=== PATIENT | female | born 1945 | race African-American/Black ===

== ENCOUNTER 2017-08-14 08:47 | Outpatient (CLI) | payer MEDICARE ==
--- NOTE | 2017-08-14 09:15 | RAD ---
CHEST TWO VIEWS: Date: 08-14-17 Comparison: None. History: Shortness of breath. FINDINGS: The lungs are hyperinflated with increased linear interstitial density noted within both lungs, sugge sting COPD. No pneumothorax, pleural fluid, focal consolidation or alveolar edema. There is atheroscl erotic calcification in the aortic arch. IMPRESSION: Pulmonary hyperinflation with increased linear interstitial density as detailed above. POS: [facility]
== END 2017-08-14 08:48 | disposition home or self-care (01) ==
LOC: RAD 08:47
PROVIDERS: ATTEND Internal Medicine Critical Care Medicine
DX: R06.00 Dyspnea, unspecified (principal); J98.4 Other disorders of lung
CPT/HCPCS: 71020

== ENCOUNTER 2018-10-15 12:30 | Outpatient (CLI) | payer MEDICARE | END 2018-10-15 12:31 | disposition home or self-care (01) | LOC: EDSTATUS 13:00 | PROVIDERS: ATTEND Family Medicine | DX: Z74.09 Other reduced mobility (principal); J44.9 Chronic obstructive pulmonary disease, unspecified ==

== ENCOUNTER 2019-02-15 18:23 | Inpatient (IN) | payer MEDICARE ==
[2019-02-15 19:08] LABS: #Eosinphils 0.1 thou/uL (0.0-0.7); #Lymphocytes 1.4 thou/uL (1.20-3.40); #Monocytes 0.7 thou/uL (0.11-0.59); #Neutrophils 4.6 thou/uL (1.40-6.50); %Basophils 0.7 % (0.0-1.0); %Eosinophils 1.4 % (0.0-10.0); %Lymphocytes 20.9 % (21.0-51.0); %Monocytes 9.8 % (0.0-10.0); %Neutrophils 67.3 % (42.0-75.0); Hemoglobin 15.9 g/dL (12.0-16.0); Mean Corpuscular HGB CONC 32.6 g/dL (32.0-36.0); Mean Corpuscular Hemoglobin 30.8 pg (27.0-31.0); Mean Corpuscular Volume 94.5 fL (78.0-98.0); Mean Platelet Volume 9.1 fL (7.4-10.4); Platelet Count 236 thou/uL (130-400); RBC Distribution Width 12.1 % (11.5-14.5); Red Blood Cell (RBC) Count 5.17 mill/uL (4.20-5.40); White Blood Cell (WBC) Count 6.9 thou/uL (4.8-10.8)
--- NOTE | 2019-02-15 19:29 | RAD ---
CHEST ONE VIEW 02/15/19 HISTORY: Difficulty breathing. COMPARISON: Radiographs 2017. FINDINGS: Lungs are hyperinflated. No pneumothorax. No effusion. Similar appearance to the right hilar fullness likely pulmonary vasculature in nature. No acute osseous abnormality. IMPRESSION: Mild lung hyperinflation suggesting obstructive pulmonary disease. POS: HOME
[2019-02-15 19:32] LABS: ALT (SGPT) 16 U/L (8-55); AST (SGOT) 26 U/L (5-34); Albumin 4.2 g/dL (3.4-4.8); Alkaline Phosphatase 71 U/L (40-150); Anion Gap 16 mmol/L (10-20); BUN (Urea Nitrogen) 14 mg/dL (9.8-20.1); Bilirubin, Total 0.4 mg/dL (0.2-1.2); Calc. Creatinine Clearance 0 mL/min (70-130); Calcium 9.9 mg/dL (7.8-10.44); Carbon Dioxide 27 mmol/L (23-31); Chloride 101 mmol/L (98-107); Estimated GFR-MDRD Greater than 90; Globulin 3.3 g/dL (2.4-3.5); Glucose 126 mg/dL (83-110); Lipase 14 U/L (8-78); Potassium 3.8 mmol/L (3.5-5.1); Protein, Total 7.5 g/dL (6.0-8.3); Sodium 140 mmol/L (136-145)
[2019-02-15 19:36] LABS: Base Excess-Venous 3.5 mmol/L (-2.0 to 3.0); Bicarbonate (HCO3v) 28.5 mmol/L (22.0-28.0); CO2 Tension (PvCO2) 43.1 mmHg (40.0-50.0); Calcium, Ionized 1.09 mmol/L (See Comments:); Chloride 103 mmol/L (98-107); Hemoglobin - Calc 17.2 g/dL (12.0-16.0); O2 Tension (PvO2) 176.7 mmHg (35.0-45.0); Potassium 3.5 mmol/L (3.5-5.1); Sodium 141 mmol/L (138-145); T. Carbon Dioxide 29.8 mmol/L (22.0-28.0); pH (Venous) 7.427 (7.320-7.430); vO2 Saturation-calc 99.6 % (60.0-85.0)
[2019-02-15] MEDS ORDERED: hydrALAZINE 20 MG/ML VIAL ONE (19:37)
[2019-02-15] MEDS ORDERED: Albuterol Sulfate 2.5 mg/3 ml Neb ONE (20:50)
[2019-02-15] MEDS ORDERED: Albuterol Sulfate 2.5 mg/0.5 ml Neb ONE (20:50)
[2019-02-15] MEDS ORDERED: niCARdipine HCl 25 MG in Sodium Chloride 0.9% 250 ML 240 ML IVPB SCH (21:15)
[2019-02-15] MEDS ORDERED: Bacteriostatic Water 30 ML VIAL FS PRN (22:26)
[2019-02-15] MEDS ORDERED: Acetaminophen 325 MG TAB PO PRN (22:27)
[2019-02-15] MEDS ORDERED: Ondansetron ODT 4 MG TAB SL PRN (22:27)
[2019-02-15] MEDS ORDERED: Ondansetron PF 4 MG/2 ML Vial IVP PRN (22:27)
[2019-02-15] MEDS ORDERED: methylPREDNISolone Sod Succ/PF 125 MG/2 ML VIAL IVP SCH (22:30)
[2019-02-15] MEDS ORDERED: Sodium Chloride 0.9% 1,000 ML IV SCH (22:30)
[2019-02-15 22:38] VITALS: BMI 16.5
[2019-02-16] MEDS: Sodium Chloride 0.9% 1,000 ML IV SCH ×2 (00:10→19:27)
[2019-02-16] MEDS: Ipratropium Bromide 2.5 ml Neb NEB SCH ×4 (00:19→11:26)
--- NOTE | 2019-02-16 00:53 | HP ---
HISTORY OF PRESENT ILLNESS: This is a 73-year-old black female with a history of COPD, oxygen dependent, who presents with a 3-day history of an exacerbation. The patient states over the past several days, she simply has had increasing shortness of breath with increasing cough, nausea, and weakness. She finally presents to the ER and was admitted because she was wheezing significantly and found to have a markedly elevated blood pressure. Lab workup also revealed an elevated BNP. The patient reports no history of heart disease or hypertension. She is followed by Dr. Godwin and previously by Dr. Duvall. I believe she has an appointment to see Dr. Martínez in the near future. PAST MEDICAL HISTORY: COPD, oxygen dependent. PAST SURGICAL HISTORY: Includes BTL and spontaneous vaginal delivery x5. MEDICATIONS: Include aspirin 81 daily, Ensure p.r.n., calcium daily, Advair 500/50 b.i.d., Ventolin HFA 2 puffs q.6h. p.r.n. and Spiriva daily. FAMILY HISTORY: Father with some type of cancer. No other significant past history according to the patient. SOCIAL HISTORY: She is a long-time smoker. She quit in July 2017. She has been dependent on oxygen. She lives with her son who is mentally delayed. He is 30 years old with a functioning ability of a 10-year-old. She is . She does have 5 children and she previously worked as a nurse's aide. ALLERGIES: NONE. REVIEW OF SYSTEMS: As above. PHYSICAL EXAMINATION: VITAL SIGNS: Blood pressure 139/66, pulse 110, respirations 24, and pulse oximetry 100%. GENERAL: The patient states she is feeling much better. HEENT: Clear. NECK: Supple. HEART: Slight tachycardia. LUNGS: Relatively clear. No wheezing at this time. She is status post multiple breathing treatments. EXTREMITIES: With no edema. LABORATORY DATA: White count 6.9, H and H 15 and 48, platelet of 236. Sodium 140, potassium 3.8, chloride 101, creatinine 0.68, BUN 14, blood sugar 126. Liver functions normal. Troponin 1 less than 0.010. BNP 1542. ASSESSMENT: 1. Chronic obstructive pulmonary disease exacerbation. 2. Oxygen dependent. 3. Hypertensive urgency, most likely as a result of 1 and 2. 4. Impaired mobility. PLAN: 1. IV steroids. 2. Neb treatments to include DuoNeb q.4h. 3. Levaquin. 4. Oxygen. 5. A.m. labs. 6. To consult Pulmonary in the a.m. Job ID: [id number]
[2019-02-16 04:51] LABS: #Lymphocytes 0.5 thou/uL (1.20-3.40); #Monocytes 0.1 thou/uL (0.11-0.59); #Neutrophils 4.4 thou/uL (1.40-6.50); %Basophils 0.3 % (0.0-1.0); %Eosinophils 0.2 % (0.0-10.0); %Lymphocytes 9.7 % (21.0-51.0); %Monocytes 1.1 % (0.0-10.0); %Neutrophils 88.8 % (42.0-75.0); Hemoglobin 14.8 g/dL (12.0-16.0); Mean Corpuscular HGB CONC 32.6 g/dL (32.0-36.0); Mean Corpuscular Hemoglobin 30.9 pg (27.0-31.0); Mean Corpuscular Volume 94.8 fL (78.0-98.0); Mean Platelet Volume 9.4 fL (7.4-10.4); Platelet Count 216 thou/uL (130-400); RBC Distribution Width 12.1 % (11.5-14.5); Red Blood Cell (RBC) Count 4.78 mill/uL (4.20-5.40)
[2019-02-16 05:09] LABS: Anion Gap 15 mmol/L (10-20); BUN (Urea Nitrogen) 14 mg/dL (9.8-20.1); Calc. Creatinine Clearance 48 mL/min (70-130); Calcium 8.9 mg/dL (7.8-10.44); Carbon Dioxide 25 mmol/L (23-31); Chloride 100 mmol/L (98-107); Estimated GFR-MDRD Greater than 90; Glucose 168 mg/dL (83-110); Potassium 3.9 mmol/L (3.5-5.1); Sodium 136 mmol/L (136-145)
[2019-02-16] MEDS: methylPREDNISolone Sod Succ 40 MG VIAL IVP SCH ×4 (05:54→23:22)
[2019-02-16] MEDS ORDERED: methylPREDNISolone Sod Succ/PF 125 MG/2 ML VIAL IVP SCH (06:00)
[2019-02-16] MEDS: Enoxaparin Sodium 40 MG/0.4 ML SYRINGE SC SCH (09:41)
[2019-02-16] MEDS: Aspirin 81 mg Enteric Coated Tablet PO SCH (09:41)
[2019-02-16] MEDS: Losartan 25 MG TAB PO SCH (09:41)
[2019-02-16] MEDS: Famotidine/PF 20 mg/2ml Vial SLOW IVP SCH ×2 (09:41→20:41)
[2019-02-16] MEDS: hydrALAZINE 20 MG/ML VIAL SLOW IVP PRN (12:23)
[2019-02-16] MEDS ORDERED: Clopidogrel Bisulfate 75 MG TAB ONE (15:21)
--- NOTE | 2019-02-16 18:04 | PRG ---
DATE OF SERVICE: 02/16/2019 SUBJECTIVE: This morning, the patient is breathing much easier. She is in much less distress. Conversing on her phone. OBJECTIVE: VITAL SIGNS: Temperature 98.1, pulse 100, respirations 20, and blood pressure 150/75. HEART: Regular rate and rhythm. LUNGS: Clear. ABDOMEN: Soft. EXTREMITIES: With no edema. LABORATORY DATA: White count 5.0, H and H 14 and 45, and platelets of 216. Sodium 136, potassium 3.9, creatinine 0.69, BUN 14, and glucose 168. ASSESSMENT: 1. Chronic obstructive pulmonary disease exacerbation, much improved since admission, presently on O2 nasal cannula. 2. O2 dependent chronic obstructive pulmonary disease. 3. Hypertensive urgency, under control. We will continue to slowly drop her blood pressure. She was started on losartan and amlodipine last night. 4. Impaired mobility. PLAN: 1. ICU. 2. DuoNeb q.4. 3. Continue Levaquin. 4. Continue O2. 5. Continue to adjust blood pressure medications. 6. The patient was also seen by Dr. Martínez this morning. 7. Discussed with the patient the importance of following up with her doctor on a regular basis. I think her blood pressure has been out of control and needs to be addressed. Job ID: [id number]
[2019-02-16] MEDS: Amlodipine 5 MG TAB PO SCH (20:40)
--- NOTE | 2019-02-17 01:33 | CON ---
DATE OF CONSULTATION: 02/16/2019 HISTORY OF PRESENT ILLNESS: Mary Doyle is a 73-year-old female, was seen in the office once for chronic obstructive pulmonary disease. She says she has been feeling poorly for several days, trying not to have to end up in the hospital. She presented to the emergency room because of shortness of breath and dramatically elevated blood pressure. She subsequently has improved dramatically. PAST MEDICAL HISTORY: Remarkable for; 1. COPD. 2. History of heavy tobacco use and marijuana use. She has quit both. 3. History of chronic respiratory failure with hypoxemia on oxygen at home. 4. History of 5 vaginal deliveries. 5. History of tubal ligation. MEDICATIONS: Prior to admission, she was on; 1. Advair. 2. Ventolin. 3. Spiriva as well as baby aspirin. FAMILY HISTORY: Family history of cancer. No history of lung disease in early age. She lost her . She was a nurse's aide, is now retired. SOCIAL HISTORY: Non contributory. ALLERGIES: SHE REPORTS NO DRUG ALLERGIES. REVIEW OF SYSTEMS: Ten points review of systems is negative. Specifically, she has no purulent sputum or hemoptysis. She denies pleuritic chest discomfort. She denies retrosternal chest discomfort. She was on a Cardene drip. This was discontinued. PHYSICAL EXAMINATION: VITAL SIGNS: She is afebrile, heart rate fluctuating between 92 to 106 this afternoon, respiratory rates in the teens, oximetry is 96% on 2.5 L, blood pressure 163/63. HEENT: Pupils are equal. Sclerae anicteric. NECK: Supple. No lymphadenopathy. LUNGS: Distant with end-expiratory wheezes. HEART: Regular rhythm. S1 and S2 are distant. ABDOMEN: Soft and nontender. EXTREMITIES: Without clubbing, cyanosis, or edema. NEUROLOGIC: Grossly nonfocal. LABORATORY DATA: White count 5, hemoglobin 14.8, platelets 216,000. Sodium 136 , potassium 3.9, chloride 100, bicarb 25, BUN 14, creatinine 0.69. Chest radiograph showed hyperinflated lungs. No infiltrates. No pulmonary edema. IMPRESSION: 1. Chronic obstructive pulmonary disease exacerbation. 2. Accelerated hypertension. 3. Long history of tobacco. She appears to be clinically improved. It would be reasonable to move her out of the Critical Care Unit. Echocardiogram needs to be done. She had a BNP of 1500. I would be happy to follow the other physicians caring for. This is a 70 minute consult, with greater than 50% of the time spent on unit coordinating care. Job ID: [id number] L[facility]
[2019-02-17] MEDS: methylPREDNISolone Sod Succ 40 MG VIAL IVP SCH ×2 (04:43→11:20)
[2019-02-17 05:25] LABS: #Lymphocytes 0.7 thou/uL (1.20-3.40); #Monocytes 0.5 thou/uL (0.11-0.59); #Neutrophils 13.7 thou/uL (1.40-6.50); %Eosinophils 0.2 % (0.0-10.0); %Lymphocytes 4.8 % (21.0-51.0); %Monocytes 3.5 % (0.0-10.0); %Neutrophils 91.6 % (42.0-75.0); Hemoglobin 15.5 g/dL (12.0-16.0); Mean Corpuscular HGB CONC 33.9 g/dL (32.0-36.0); Mean Corpuscular Hemoglobin 32.4 pg (27.0-31.0); Mean Corpuscular Volume 95.5 fL (78.0-98.0); Mean Platelet Volume 9.7 fL (7.4-10.4); Platelet Count 256 thou/uL (130-400); RBC Distribution Width 12.4 % (11.5-14.5)
[2019-02-17 05:50] LABS: Anion Gap 12 mmol/L (10-20); BUN (Urea Nitrogen) 16 mg/dL (9.8-20.1); Calc. Creatinine Clearance 40 mL/min (70-130); Carbon Dioxide 29 mmol/L (23-31); Chloride 100 mmol/L (98-107); Estimated GFR-MDRD 80; Glucose 123 mg/dL (83-110); Potassium 4.6 mmol/L (3.5-5.1); Sodium 136 mmol/L (136-145)
[2019-02-17] MEDS: Enoxaparin Sodium 40 MG/0.4 ML SYRINGE SC SCH (07:51)
[2019-02-17] MEDS: Furosemide 40 MG TAB PO SCH (07:52)
[2019-02-17] MEDS: Aspirin 81 mg Enteric Coated Tablet PO SCH (07:52)
[2019-02-17] MEDS: Famotidine/PF 20 mg/2ml Vial SLOW IVP SCH ×2 (07:52→19:57)
[2019-02-17] MEDS: Losartan 25 MG TAB PO SCH (07:54)
[2019-02-17] MEDS: guaiFENesin ER 600 MG TAB PO SCH ×2 (08:20→19:56)
--- NOTE | 2019-02-17 08:55 | RAD ---
XR Chest Pa Lat STANDARD History: COPD exacerbation Comparison: Radiograph 10/18/2018 Findings: Lungs are hyperinflated. There is scarring left lung apex. No pneumothorax. Calcified granu dari left lower lobe. No acute osseous abnormality. Impression: Lung hyperinflation suggesting obstructive pulmonary disease. No acute intrathoracic abno rmality. Nodular density left lung apex better seen on today's examination. Nonemergent follow-up CT of the chest is recommended.
[2019-02-17] MEDS: hydrALAZINE 20 MG/ML VIAL SLOW IVP PRN ×2 (11:20→17:59)
--- NOTE | 2019-02-17 12:56 | PRG ---
DATE OF SERVICE: 02/17/2019 SUBJECTIVE: Ms. Doyle feels better. Has no acute complaints. OBJECTIVE: VITAL SIGNS: Temperature is 97.6, pulse 78, blood pressure 131/75, and O2 saturation 96% on 2 L. HEENT: Unremarkable. NECK: No JVD. LUNGS: Clear without wheezing. CARDIAC: S1 and S2, regular. ABDOMEN: Soft. EXTREMITIES: No edema. ASSESSMENT: Chronic obstructive pulmonary disease with exacerbation - now appears close to what her baseline probably is. PLAN: She is probably at the point where discharge should be considered. Her steroids can be switched to oral prednisone. Her antibiotics can be switched to oral Levaquin. Job ID: [id number]
--- NOTE | 2019-02-17 13:51 | PQF ---
CLINICAL DOCUMENTATION IMPROVEMENT CLARIFICATION FORM: ICD-10 Updated PLEASE DO AN ADDENDUM TO THE PROGRESS NOTE WITH ANY DOCUMENTATION UPDATES OR ADDITIONS AND CARRY THROUGH TO DC SUMMARY. THANK YOU. DATE: 02/17/19 ATTN: DR. FONSECA Please exercise your independent, professional judgment in responding to the clarification form. Clinical indicators are provided on the bottom of this form for your review Please check appropriate box(s): [ x ] Acute Respiratory Failure: [ ] with Hypoxia[ ] with Hypercapnia [x ] Acute On Chronic Respiratory Failure: [ ] with Hypoxia [ ] with Hypercapnia [ ] Acute Respiratory Failure due to: (etiology) [ ] Chronic Respiratory Failure only [ ] with Hypoxia [ ] with Hypercapnia [ ] Other diagnosis [ ] Unable to determine In addition, please specify: Present on Admission (POA): [ x] Yes [ ] No [ ] Unable to determine For continuity of documentation, please document condition throughout progress notes and discharge summary. Thank You. CLINICAL INDICATORS - SIGNS / SYMPTOMS / LABS H&P: "OXYGEN DEPENDENT" RR 30 PULSE 110 RISKS: COPD H/O CIGARETTE SMOKING CHF TREATMENT: BIPAP PULMONARY CONSULT NEB TREATMENTS (ER-PRESENT) SOLUMEDROL (02/16-02/17) PO PREDNISONE (START 02/18) (This form is maintained as a part of the permanent medical record) 2014 [employer]. All Rights Reserved [employer] Winform Viewer REGAN [email or web address] Office: [phone] [facility]
[2019-02-17] MEDS: Amlodipine 5 MG TAB PO SCH (19:56)
--- NOTE | 2019-02-17 20:43 | PRG ---
DATE OF SERVICE: 02/17/2019 HISTORY OF PRESENT ILLNESS: The patient is transitioned to floor from ICU status, remains comfortable on 2 L nasal cannula, however has not ambulated much and has a son with traumatic brain injury who has been somewhat dependent on her care from mental standpoint, which she is eager to return home, only has home oxygen. Does not have portable oxygen, was approved for power chair, but does not have any oxygen outside at home limiting her to potential homebound status. The patient states that her cough has become less productive on antibiotics and breathing treatments. Temperature of 98.4, pulse of 93, respiratory rate of 20, oxygen saturation 96% on 2 L nasal cannula, and blood pressure 173/75. LABORATORY WORK: White blood cell count 15.0, hemoglobin of 15.5, sodium 136, potassium of 4.6, creatinine of 0.84. BNP ran on the 8th was 1500. Repeat chest x-ray showed no acute signs of any pneumonia potential, left nodular density at apex recommending nonurgent CT of chest for followup. PHYSICAL EXAMINATION: GENERAL: The patient is alert, in no acute distress. HEENT: Head is normocephalic and atraumatic. Extraocular movements are intact. Sclerae are white. Nasal cannula in place. Oral mucosa is moist. NECK: Supple. HEART: Slightly tachycardic. No murmurs. Regular rhythm otherwise. LUNGS: Clear to auscultation bilaterally. No rubs or wheezes. However, the patient is with extremely poor air movement of lungs. Difficult to auscultate anything. ABDOMEN: Soft and nontender. Positive bowel sounds throughout. EXTREMITIES: Lower extremities without cyanosis or edema. NEUROLOGIC: The patient is alert and oriented x3. No focal deficits. Speech is normal. ASSESSMENT AND PLAN: Chronic obstructive pulmonary disease exacerbation, congestive heart failure, acute on chronic respiratory failure, hypertension. Titrating the patient's blood pressure medications to help bring down from extremely high systolics. The patient states she remains asymptomatic other than her breathing with exertional symptoms, continued on antibiotics and steroids and breathing treatments. Pulmonology has been following and decreased to oral considerations today and are okay with the patient discharged home, this likely will occur tomorrow and continue her home health oxygen. We will follow up for titration of blood pressure medications on outpatient basis. Job ID: [id number]
[2019-02-18] MEDS: Losartan 25 MG TAB PO SCH (07:43)
[2019-02-18] MEDS: Furosemide 40 MG TAB PO SCH (07:43)
[2019-02-18] MEDS: guaiFENesin ER 600 MG TAB PO SCH (07:43)
[2019-02-18] MEDS: Aspirin 81 mg Enteric Coated Tablet PO SCH (07:43)
[2019-02-18] MEDS: Enoxaparin Sodium 40 MG/0.4 ML SYRINGE SC SCH (07:44)
[2019-02-18] MEDS: Famotidine/PF 20 mg/2ml Vial SLOW IVP SCH (07:44)
[2019-02-18] MEDS ORDERED: predniSONE 20 MG TAB PO SCH (09:00)
[2019-02-18] MEDS ORDERED: Calcium Carbonate 500 MG ChewTAB PO PRN (10:24)
[2019-02-18] MEDS ORDERED: Mag-Al 1200 mg/1200 mg/30 ML UDCUP PO PRN (10:24)
[2019-02-18] MEDS: hydrALAZINE 20 MG/ML VIAL SLOW IVP PRN (12:26)
[2019-02-18 16:40] VITALS: BP 149/68; TEMP 97.6
--- NOTE | 2019-02-20 01:41 | DIS ---
DATE OF ADMISSION: 02/15/2019 DATE OF DISCHARGE: 02/18/2019 PRESENTING CHIEF COMPLAINT: Shortness of breath. HOSPITAL COURSE: The patient was treated for COPD exacerbation with IV Levaquin, IV steroids, and breathing treatments. The patient is on home oxygen at baseline, was recently qualified for power chair, however, does not have portable oxygen and remains largely homebound. If she does venture out home, she frequently does struggle without oxygen. The patient responded to therapy as well. Work with case management to redirect the patient's expectations. I believe she appears to be hung up on need for compressor rather than oxygen tank as she feels they are heavy, but the patient will need to be on 3 months of oxygen tanks prior to being able to qualify for compressor. DME company contacted to potentially restart the patient's oxygen tank on discharge. 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 The patient was initiated on blood pressure medication and Lasix given her elevated BNP for diastolic heart failure. We will titrate on an outpatient basis upon discharge. DISCHARGE MEDICATIONS: 1. Prednisone 40 mg one tab daily for 5 days. 2. Metoprolol-XL 50 mg daily. 3. Losartan 50 mg daily. 4. Levaquin 750 mg daily. 5. Lasix 40 mg daily. 6. Amlodipine 5 mg daily. Return to home Spiriva 18 mcg two puffs b.i.d. as well as albuterol p.r.n. The patient has additional controller medication at home as well as DuoNeb p.r.n. FOLLOWUP: Follow up with myself, Dr. Jerry Godwin, PCP in the next 7 days. DISCHARGE CONDITION: Stable. DISCHARGE DIAGNOSES: Improved chronic obstructive pulmonary exacerbation, diastolic congestive heart failure. Acute on chronic respiratory failure, improved, on home oxygen. Hypertensive urgency, improved. DISCHARGE DIET: Heart healthy. Job ID: [id number]
== END 2019-02-18 17:27 | disposition home or self-care (01) | DRG 189 ==
LOC: ERS 18:23 → CCU 20:47 → T4-B 22:10
PROVIDERS: ADMIT Family Medicine; ATTEND Family Medicine
DX: J96.21 Acute and chronic respiratory failure with hypoxia (principal); J44.1 Chronic obstructive pulmonary disease with (acute) exacerbation; I16.0 Hypertensive urgency; I50.9 Heart failure, unspecified; Z99.81 Dependence on supplemental oxygen; Z87.891 Personal history of nicotine dependence; Z79.51 Long term (current) use of inhaled steroids; Z79.82 Long term (current) use of aspirin; Z79.899 Other long term (current) drug therapy; Z98.51 Tubal ligation status
CPT/HCPCS: 36415; 71045; 71046; 80048; 80053; 82330; 82803; 83690; 83880; 84484; 85025; 87040; 93005; 94640; 94644; 94660; 94760; 96365; 96366; 96375; J0360; J1650; J1956; J2920; J2930; J7050; J7512; J7611; J7620; S0028

== ENCOUNTER 2019-02-28 11:24 | Emergency (ER) | payer MEDICARE ==
[2019-02-28] MEDS ORDERED: methylPREDNISolone Sod Succ/PF 125 MG/2 ML VIAL ONE (11:53)
[2019-02-28 12:18] LABS: #Eosinphils 0.3 thou/uL (0.0-0.7); #Lymphocytes 1.7 thou/uL (1.20-3.40); #Monocytes 1.2 thou/uL (0.11-0.59); #Neutrophils 7.9 thou/uL (1.40-6.50); %Basophils 0.2 % (0.0-1.0); %Eosinophils 2.4 % (0.0-10.0); %Lymphocytes 15.1 % (21.0-51.0); %Monocytes 10.8 % (0.0-10.0); %Neutrophils 71.5 % (42.0-75.0); Hemoglobin 15.9 g/dL (12.0-16.0); Mean Corpuscular HGB CONC 32.4 g/dL (32.0-36.0); Mean Corpuscular Hemoglobin 30.5 pg (27.0-31.0); Mean Corpuscular Volume 94.1 fL (78.0-98.0); Mean Platelet Volume 8.8 fL (7.4-10.4); Platelet Count 237 thou/uL (130-400); RBC Distribution Width 12.2 % (11.5-14.5); White Blood Cell (WBC) Count 11.1 thou/uL (4.8-10.8)
[2019-02-28 12:42] LABS: ALT (SGPT) 14 U/L (8-55); AST (SGOT) 18 U/L (5-34); Albumin 3.8 g/dL (3.4-4.8); Alkaline Phosphatase 53 U/L (40-150); Anion Gap 11 mmol/L (10-20); BUN (Urea Nitrogen) 11 mg/dL (9.8-20.1); Bilirubin, Total 0.6 mg/dL (0.2-1.2); Calc. Creatinine Clearance 0 mL/min (70-130); Calcium 9.6 mg/dL (7.8-10.44); Carbon Dioxide 36 mmol/L (23-31); Chloride 90 mmol/L (98-107); Estimated GFR-MDRD Greater than 90; Globulin 3.1 g/dL (2.4-3.5); Glucose 129 mg/dL (83-110); Potassium 3.9 mmol/L (3.5-5.1); Protein, Total 6.9 g/dL (6.0-8.3); Sodium 133 mmol/L (136-145)
--- NOTE | 2019-02-28 13:12 | RAD ---
PORTABLE AP CHEST X-RAY: HISTORY: Shortness of breath. COMPARISON: 02/15/2019 FINDINGS: The cardiac silhouette and pulmonary vasculature are within normal limits. The lungs remain hyperinf lated. Calcified granuloma is present at the left lung base. The lungs are otherwise clear. Right hilar fullness is again seen but is stable compared to prior exam, as well as a study in 2017. The n odular density previously mentioned, in the left lung apex, is less well delineated on the current st udy. Vascular calcification is seen in the thoracic aorta. Osseous structures have a normal appeara nce. IMPRESSION: Stable chest with continued hyperinflation of the lungs. POS: [facility]
--- NOTE | 2019-03-01 12:02 | EKG ---
Test Reason : Blood Pressure : / mmHG Vent. Rate : 086 BPM Atrial Rate : 086 BPM P-R Int : 112 ms QRS Dur : 086 ms QT Int : 374 ms P-R-T Axes : 074 -27 -12 degrees QTc Int : 447 ms Normal sinus rhythm Possible Left atrial enlargement Left ventricular hypertrophy Nonspecific T wave abnormality Abnormal ECG Confirmed by LORIN DIMAS ([id number]), marketing editor YONATHAN ROSE ([id number]) on 03/01/2019 12:01:41 PM Referred By: Confirmed By:LORIN DIMAS
== END 2019-02-28 15:24 | disposition home or self-care (01) ==
LOC: ERS 11:24
DX: J44.1 Chronic obstructive pulmonary disease with (acute) exacerbation (principal); F41.9 Anxiety disorder, unspecified; Z87.891 Personal history of nicotine dependence; Z79.899 Other long term (current) drug therapy; Z79.82 Long term (current) use of aspirin; Z79.51 Long term (current) use of inhaled steroids
CPT/HCPCS: 71045; 80053; 84484; 85025; 93005; 94640; 96374; J2930; J7620

== ENCOUNTER 2019-03-05 00:17 | Inpatient (IN) | payer MEDICARE ==
[2019-03-05] MEDS ORDERED: Ketamine 50 MG/ML (10ML VIAL) ONE (00:25)
[2019-03-05 00:42] LABS: Actual Bicarbonate (HCO3a) 33.1 mEq/L (22-28); Analyzer IN Cardio ER; Base Excess (BEa) 4.5 mEq/L (-2.0 to +3.0); Calcium, Ionized 1.21 mmol/L (1.12-1.30); Carboxyhemoglobin (COHb) 0.6 gm% (0.0-3.0); Hemoglobin (Hb) 16.4 g/dL (12.0-16.0); O2 Tension (PaO2) 115.6 mmHg (> 70.0); Potassium - ABG Lab 4.72 mmol/L (3.70-5.30); pH, Arterial 7.32 (7.35-7.45)
[2019-03-05 00:48] LABS: CO2 Tension 65.9 mmHg (35.0-45.0)
[2019-03-05 00:49] LABS: ALV-art Gradient 87.225 (0-20); Puncture Site LRA
[2019-03-05 00:56] LABS: Bilirubin Negative (Negative); Blood, Urine Moderate (Negative); Clarity Slightly Cloudy (Clear); Glucose, Urine (Dipstick) Negative (Negative); Leukocyte Negative (Negative); Nitrite Negative (Negative); Protein, Urine (Dipstick) > or equal to 300 mg/dL (Neg-Trace); Urobilinogen 0.2 mg/dL (0.2-1.0); pH, Urine 7.5 (5.0-9.0)
[2019-03-05 01:00] LABS: #Eosinphils 0.2 thou/uL (0.0-0.7); #Monocytes 1.4 thou/uL (0.11-0.59); #Neutrophils 8.7 thou/uL (1.40-6.50); %Basophils 0.3 % (0.0-1.0); %Eosinophils 1.6 % (0.0-10.0); %Lymphocytes 22.7 % (21.0-51.0); %Monocytes 10.1 % (0.0-10.0); %Neutrophils 65.3 % (42.0-75.0); Hemoglobin 15.5 g/dL (12.0-16.0); Mean Corpuscular HGB CONC 31.5 g/dL (32.0-36.0); Mean Corpuscular Hemoglobin 29.9 pg (27.0-31.0); Mean Corpuscular Volume 94.9 fL (78.0-98.0); Mean Platelet Volume 9.1 fL (7.4-10.4); Platelet Count 250 thou/uL (130-400); Red Blood Cell (RBC) Count 5.18 mill/uL (4.20-5.40); White Blood Cell (WBC) Count 13.3 thou/uL (4.8-10.8)
[2019-03-05 01:08] LABS: Renal Epithelial None Seen HPF (0-3); Squamous Epithelial 0-3 HPF (0-3); Transitional Epithelial NONE SEEN HPF (0-3)
[2019-03-05 01:09] LABS: Bacteria/HPF 2+ HPF (None Seen)
[2019-03-05 01:10] LABS: Crystals/HPF 2+ AMORPH PHOS HPF (Negative); Hyaline Casts/LPF NONE SEEN LPF (0-3 Hyaline)
[2019-03-05 01:14] LABS: Amphetamine Not Detected (NotDetected); Barbiturates Screen Not Detected (NotDetected); Benzodiazepine Screen Not Detected (NotDetected); Cocaine Metabolite Screen Not Detected (NotDetected); Medtox Control Line Valid? VALID (VALID); Medtox Reader # READER 4; Methadone Not Detected (NotDetected); Methamphetamine Not Detected (NotDetected); Opiate Screen Not Detected (NotDetected); Oxycodone Screen Not Detected (NotDetected); Phencyclidine (PCP) Not Detected (NotDetected); THC/Cannabinoid Screen Not Detected (NotDetected); Tricyclic Screen Not Detected (NotDetected)
[2019-03-05] MEDS ORDERED: Piperacillin/Tazobactam 4.5 GM in Sodium Chloride 0.9% 100 ML IVPB SCH ×2 (01:15→14:00)
[2019-03-05 01:17] LABS: ALT (SGPT) 62 U/L (8-55); AST (SGOT) 81 U/L (5-34); Alkaline Phosphatase 84 U/L (40-150); Anion Gap 17 mmol/L (10-20); BUN (Urea Nitrogen) 13 mg/dL (9.8-20.1); Bilirubin, Total 0.7 mg/dL (0.2-1.2); Calc. Creatinine Clearance 0 mL/min (70-130); Calcium 9.8 mg/dL (7.8-10.44); Carbon Dioxide 31 mmol/L (23-31); Chloride 93 mmol/L (98-107); Estimated GFR-MDRD 82; Globulin 2.9 g/dL (2.4-3.5); Glucose 222 mg/dL (83-110); Protein, Total 6.9 g/dL (6.0-8.3); Sodium 136 mmol/L (136-145)
[2019-03-05 01:47] LABS: CKMB 0.8 ng/mL (0-6.6)
[2019-03-05 03:09] VITALS: BMI 16.0
[2019-03-05] MEDS ORDERED: Ondansetron PF 4 MG/2 ML Vial IVP PRN (06:54)
--- NOTE | 2019-03-05 07:41 | RAD ---
EXAM: Single view of the chest HISTORY: Dyspnea COMPARISON: 02/28/2019 FINDINGS: Single view of the chest shows a normal sized cardiomediastinal silhouette. Hyperexpansion of the lungs is consistent with COPD. Atherosclerotic calcifications are seen in the aorta. There is no evidence of consolidation, mass, or pleural effusion. The bones are unremarkable. IMPRESSION: No evidence of acute cardiopulmonary disease
[2019-03-05] MEDS ORDERED: Enoxaparin Sodium 30 MG/0.3 ML SYRINGE SC SCH (09:00)
[2019-03-05] MEDS: Losartan 25 MG TAB PO SCH (09:12)
[2019-03-05] MEDS: Furosemide 40 MG TAB PO SCH (09:12)
[2019-03-05] MEDS: Doxycycline 100 MG CAP PO SCH ×2 (09:18→21:34)
--- NOTE | 2019-03-05 09:22 | CON ---
DATE OF CONSULTATION: 03/05/2019 HISTORY: Mary Doyle is a 73-year-old female, readmitted last night with respiratory distress, unresponsive to usual home medication, received 125 mg of Solu-Medrol, 2 g of magnesium, 3 neb treatments, placed on CPAP, and transferred to the hospital where upon arrival, sats were 88 on 2 L, eventually got better. Heart rate was 110 to 120. Longstanding history of tobacco abuse. Quit smoking in July, less than 6 months ago. She can barely walk 50 feet on a good day without getting markedly short of breath. Denies any coughing or wheezing or chest pain. PAST MEDICAL HISTORY: End-stage COPD. PREVIOUS SURGERIES: Tubal ligation. Apparently, tobacco noted, quit in July 2018. Previously, used marijuana. HOME MEDICATIONS: Include: 1. Albuterol. 2. Aspirin. 3. Spiriva. She was hospitalized recently in February 2012 with similar problems. She sees Dr. Godwin. She also saw Dr. Uribe in our office at that time, but apparently has seen Dr. Martínez from time to time. REVIEW OF SYSTEMS: Ten-point negative. PHYSICAL EXAMINATION: VITAL SIGNS: Blood pressure is 132/65, sats 95% on 2 L, respiratory rate 18, and pulse 80. GENERAL: Awake, alert, responsive, no edema. She is cachectic. CHEST: Decreased breath sounds. No wheezing. CARDIAC: Normal S1, S2. No gallops. ABDOMEN: Soft. NEUROLOGIC: She is awake, alert, and responsive. LABORATORY DATA: PO2 was 115, pCO2 was 65, pH was 7.32 on a BiPAP yesterday. Lytes are normal. Glucose slightly elevated. Urine was normal. DIAGNOSTIC DATA: Chest x-ray, marked hyperinflation. IMPRESSION: 1. Acute on chronic respiratory failure. End-stage chronic obstructive pulmonary disease. 2. Baseline hypertension apparently. PLAN: At this stage, continue steroids, neb treatments, supportive care. We will notify Dr. Martínez. This is a 45-minute critical time. Please note, she may benefit from home ventilation. Job ID: [id number]
[2019-03-05] MEDS: ALPRAZolam 0.25 MG TAB PO PRN ×2 (10:18→22:04)
--- NOTE | 2019-03-05 11:56 | HP ---
PRIMARY CARE PROVIDER: Jerry Godwin MD COVERING PHYSICIAN: Covering for Dr. Godwin, primary care provider. HISTORY OF PRESENT ILLNESS: The patient is a 73-year-old black female with known history of COPD, who arrived in the ER complaining of increasing shortness of breath. She was recently admitted here approximately two and half to three weeks ago with similar complaints. The patient noted that she was started having further shortness of breath. No chest pain. No nausea, vomiting, or diarrhea were noted. She did note some productive cough. She was seen and evaluated in the ER. She was found to be febrile with a temperature of 101. She was given 125 mg of Solu-Medrol, magnesium, and DuoNeb. She was placed on BiPAP, which improved her respiratory status. The patient has been alert and active and involved in her medical care since my arrival this morning. She has no other medical problems. She reports that she has had a long history of COPD. She is oxygen dependent at home. As noted, she was recently admitted here earlier this February with similar problems. She feels like this time is a little bit more severe. At this time, she reports no chest pain. She was unaware that she had any fever upon arrival today. Otherwise, no other medical complaints are noted. ALLERGIES: SHE HAS NO KNOWN ALLERGIES. CURRENT MEDICATIONS: 1. Albuterol. 2. Aspirin. 3. Spiriva. 4. Metoprolol. 5. Amlodipine. 6. Furosemide. 7. Losartan. PAST MEDICAL HISTORY: Positive for the above noted COPD. Apparently, she has some history of congestive heart failure. No prior history of coronary artery disease. PAST SURGICAL HISTORY: Positive for tubal ligation. SOCIAL/PERSONAL HISTORY: She is a former smoker. She quit two years ago. She does note that she does drink some alcohol occasionally. FAMILY HISTORY: Noncontributory. REVIEW OF SYSTEMS: Could not be obtained. PHYSICAL EXAMINATION: VITAL SIGNS: BP is 123/60 and O2 saturation is 98%. Temperature, she is afebrile. Pulse is 80 and regular. GENERAL: She is now off BiPAP, on nasal cannula. She is alert, active, does not appear in any significant distress. She does use some accessory muscles of breathing. HEENT: Normocephalic and atraumatic. NECK: Supple. Full range of motion. No masses. No bruits auscultated. LUNGS: Reveal decreased breath sounds bilaterally. Occasional wheezes are noted bilaterally. No rales or rhonchi are appreciated otherwise. HEART: Reveals a regular rate and rhythm. No murmurs, gallops, or rubs. ABDOMEN: Soft and nontender. Bowel sounds are present and active. No hepatosplenomegaly noted. There is no rebound or guarding noted. EXTREMITIES: Show no edema. No cyanosis otherwise noted. LABORATORY DATA: Her white blood count is 13.3, hemoglobin 15.5, and hematocrit 49.1. Chemistry; sodium 136, potassium 5.0, chloride 93, CO2 of 31, BUN 13, and creatinine 0.82. Lactic acid is 1.9. BNP is elevated at 967. Urinalysis is otherwise clear. Chest x-ray is positive for COPD changes. No infiltrates are otherwise noted. IMPRESSION: 1. This is a 73-year-old white female with known history of chronic obstructive pulmonary disease, who presents with exacerbation of chronic obstructive pulmonary disease. 2. She has an elevated BNP. She has some aspect of congestive heart failure as well. I think presently she has shortness of breath. There was; however, chronic obstructive pulmonary disease exacerbation. PLAN: 1. Since she is requiring BiPAP, she has been placed in ICU. 2. Cover with antibiotics with Levaquin and Zosyn. 3. She has been given Solu-Medrol. We will continue this. 4. Consult Pulmonology for further recommendations. The patient was previously seen by Dr. Martínez on her last visit. She states she is not able to make it to his office for followup. The patient requests to be a full code at this time that has been ordered. Job ID: [id number]
[2019-03-05] MEDS: methylPREDNISolone Sod Succ 40 MG VIAL IVP SCH ×3 (12:26→23:58)
[2019-03-05] MEDS: Mometasone/Formoterol 120 PUFF INHALER INH SCH (18:16)
[2019-03-05] MEDS: Amlodipine 5 MG TAB PO SCH (21:56)
[2019-03-06 05:02] LABS: Anion Gap 14 mmol/L (10-20); BUN (Urea Nitrogen) 32 mg/dL (9.8-20.1); Calc. Creatinine Clearance 40 mL/min (70-130); Calcium 9.7 mg/dL (7.8-10.44); Carbon Dioxide 32 mmol/L (23-31); Chloride 92 mmol/L (98-107); Estimated GFR-MDRD 83; Glucose 121 mg/dL (83-110); Potassium 4.7 mmol/L (3.5-5.1); Sodium 133 mmol/L (136-145)
[2019-03-06] MEDS: Acetaminophen 325 MG TAB PO PRN (05:08)
[2019-03-06 05:17] LABS: Band 4 % (5-11); Hemoglobin 13.4 g/dL (12.0-16.0); Lymphocytes 8 % (21-51); MDiff Complete? YES; Mean Corpuscular HGB CONC 32.1 g/dL (32.0-36.0); Mean Corpuscular Hemoglobin 30.3 pg (27.0-31.0); Mean Corpuscular Volume 94.4 fL (78.0-98.0); Mean Platelet Volume 9.1 fL (7.4-10.4); Monocytes 4 % (0-10); Neutrophil 83 % (42-75); Platelet Count 250 thou/uL (130-400); RBC Distribution Width 11.8 % (11.5-14.5); Red Blood Cell (RBC) Count 4.41 mill/uL (4.20-5.40)
[2019-03-06] MEDS: methylPREDNISolone Sod Succ 40 MG VIAL IVP SCH ×4 (06:11→23:45)
[2019-03-06] MEDS: Mometasone/Formoterol 120 PUFF INHALER INH SCH ×2 (06:58→18:17)
--- NOTE | 2019-03-06 07:39 | PRG ---
DATE OF SERVICE: 03/06/2019 SUBJECTIVE: Ms. Doyle seems to be resting more comfortably. She did not need BiPAP through the night last night. She does not note any medical complaints. OBJECTIVE: VITAL SIGNS: Her temperature is afebrile, pulse 76, O2 sats 99% on 3 L, and blood pressure 125/56. LUNGS: Reveal bilateral breath sounds. No rales or rhonchi are appreciated. HEART: Reveals a regular rate and rhythm. No murmurs, gallops, or rubs. LABORATORY DATA: Her white blood count is 18,000, hemoglobin 13.4, and hematocrit 41.6. Sodium 133, potassium 4.7, chloride 92, CO2 of 32, BUN 32, and creatinine 0.81. BNP 1987. Blood cultures thus far negative. IMPRESSION: 1. Exacerbation of chronic obstructive pulmonary disease. 2. She has an element probably of some congestive heart failure. Echocardiogram is now pending. PLAN: Continue current medications. Further evaluation with echocardiogram. Overall, the patient has improved from her COPD. Job ID: [id number]
[2019-03-06] MEDS: Doxycycline 100 MG CAP PO SCH ×2 (07:43→20:56)
[2019-03-06] MEDS: Furosemide 40 MG TAB PO SCH (07:44)
[2019-03-06] MEDS: Losartan 25 MG TAB PO SCH (07:44)
[2019-03-06] MEDS: Enoxaparin Sodium 40 MG/0.4 ML SYRINGE SC SCH (07:44)
--- NOTE | 2019-03-06 15:49 | PRG ---
DATE OF SERVICE: 03/06/2019 SUBJECTIVE: Yanira says she is feeling better than she felt yesterday. She says she ran out of her nebulizer medicine. OBJECTIVE: VITAL SIGNS: Heart rates in the 70s, respiratory rate in the 20s, oximetry is 96% on 2 L, and blood pressure 156/71. LUNGS: Remarkable for distant wheezes. HEART: Regular rhythm. ABDOMEN: Soft and nontender. EXTREMITIES: Without edema. NEURO: Grossly nonfocal. LABORATORY DATA: White count 18, hemoglobin 13.4, and platelets 250. Sodium 133, potassium 4.7, chloride 92, bicarb 32, BUN 32, and creatinine 0.81. IMPRESSION AND PLAN: Chronic obstructive pulmonary disease exacerbation, slowly improving, likely in part secondary to running out of her nebulizer medicine. She lives with her son and her daughter does not feel that the son is taking good care of her, so the daughter plans on taking her home. She will probably be moved out of the ICU at the end of the day if she remains stable. Job ID: [id number]
[2019-03-06] MEDS: Amlodipine 5 MG TAB PO SCH (20:56)
[2019-03-06] MEDS: ALPRAZolam 0.25 MG TAB PO PRN (23:45)
[2019-03-07] MEDS: methylPREDNISolone Sod Succ 40 MG VIAL IVP SCH (05:45)
[2019-03-07] MEDS: Mometasone/Formoterol 120 PUFF INHALER INH SCH ×2 (07:27→19:29)
--- NOTE | 2019-03-07 07:37 | PRG ---
DATE OF SERVICE: 03/07/2019 SUBJECTIVE: Ms. Doyle is resting in bed. She is feeling much more comfortable, breathing better. OBJECTIVE: VITAL SIGNS: Temperature 98.2, O2 saturation 93% on 3 L, and blood pressure 120/58. LUNGS: Clear. No wheezes, rales, or rhonchi are appreciated. HEART: Reveals a regular rate and rhythm. No murmurs, gallops, or rubs. EXTREMITIES: No clubbing, edema, or cyanosis. DIAGNOSTIC DATA: 2D echocardiogram does show some diastolic dysfunction. Ejection fraction 55%. IMPRESSION: Chronic obstructive pulmonary disease exacerbation, improving. PLAN: 1. The patient possibly could be discharged home tomorrow. We have consulted Case Management regarding some home health issues should the patient need. 2. Discontinue Thomas. 3. Physical therapy today. 4. I have switched her to p.o. prednisone. Job ID: [id number]
[2019-03-07] MEDS: predniSONE 20 MG TAB PO SCH (08:31)
[2019-03-07] MEDS: Losartan 25 MG TAB PO SCH (08:31)
[2019-03-07] MEDS: Enoxaparin Sodium 40 MG/0.4 ML SYRINGE SC SCH (08:31)
[2019-03-07] MEDS: Furosemide 40 MG TAB PO SCH (08:31)
[2019-03-07] MEDS: Doxycycline 100 MG CAP PO SCH ×2 (08:31→20:14)
--- NOTE | 2019-03-07 09:54 | PRG ---
DATE OF SERVICE: 03/07/2019 SUBJECTIVE: Mary Doyle has no complaints. OBJECTIVE: VITAL SIGNS: Heart rate 72, she is afebrile, respiratory rate is 20, oximetry is 93%, and blood pressure 120/58. LUNGS: Clear. HEART: Regular rate and rhythm. ABDOMEN: Soft. LABORATORY DATA: There is no new lab today. IMPRESSION: 1. Chronic obstructive pulmonary disease exacerbation. 2. Elevated BNP. Her echocardiogram shows a normal ejection fraction with diastolic dysfunction, which likely explains her BNP. She also has [id number] aortic stenosis and moderate aortic insufficiency. She is probably getting close to being ready for discharge. She can probably get by and with a short steroid taper. I have written a prescription for ipratropium and albuterol nebulizer solution and left it at bedside for her son to fill. Job ID: [id number]
[2019-03-07] MEDS ORDERED: guaiFENesin/Dextromethorphan 10 ML UDCUP PO PRN (12:03)
--- NOTE | 2019-03-07 12:09 | EKG ---
Test Reason : RESP DISTRESS Blood Pressure : / mmHG Vent. Rate : 097 BPM Atrial Rate : 097 BPM P-R Int : 110 ms QRS Dur : 094 ms QT Int : 312 ms P-R-T Axes : 074 -63 094 degrees QTc Int : 396 ms Sinus rhythm with short [place] Left anterior fascicular block Left ventricular hypertrophy with repolarization abnormality Cannot rule out Septal infarct , age undetermined Abnormal ECG Confirmed by LAURIE COUGHLIN DO ([id number]), pictures editor YONATHAN ROSE ([id number]) on 03/07/2019 12:09:29 PM Referred By: Confirmed By:LAURIE COUGHLIN DO
[2019-03-07] MEDS: Amlodipine 5 MG TAB PO SCH (20:13)
[2019-03-07] MEDS: ALPRAZolam 0.25 MG TAB PO PRN (23:03)
[2019-03-08] MEDS ORDERED: Guaifenesin DM 100-10/5 ML UDCUP PO PRN (01:00)
[2019-03-08] MEDS: Acetaminophen 325 MG TAB PO PRN (01:06)
[2019-03-08 07:47] VITALS: TEMP 98
[2019-03-08] MEDS: Mometasone/Formoterol 120 PUFF INHALER INH SCH (08:00)
[2019-03-08] MEDS: Doxycycline 100 MG CAP PO SCH (08:29)
[2019-03-08] MEDS: Furosemide 40 MG TAB PO SCH (08:29)
[2019-03-08] MEDS: predniSONE 20 MG TAB PO SCH (08:29)
[2019-03-08] MEDS: Losartan 25 MG TAB PO SCH (08:30)
[2019-03-08] MEDS: Enoxaparin Sodium 40 MG/0.4 ML SYRINGE SC SCH (08:30)
--- NOTE | 2019-03-08 12:08 | PRG ---
DATE OF SERVICE: 03/08/2019 SUBJECTIVE: This morning, she is better. OBJECTIVE: VITAL SIGNS: Sats are 90% on 3 L, pulse 76, respiratory rate 18, and blood pressure 170/72. CHEST: Decreased breath sounds. No wheezing. CARDIAC: Normal S1 and S2. No gallops. ABDOMEN: No masses. IMPRESSION: Chronic obstructive pulmonary disease, congestive heart failure, major anxiety, and diastolic dysfunction. PLAN: She is stable enough to be discharged home to follow up with Dr. Martínez and Cardiology. Job ID: [id number]
[2019-03-08 12:37] VITALS: BP 165/54
--- NOTE | 2019-03-09 02:31 | DIS ---
DATE OF ADMISSION: 03/05/2019 DATE OF DISCHARGE: 03/08/2019 PRIMARY CARE PHYSICIAN: Dr. Jerry Godwin. ADMISSION DIAGNOSES: Chronic obstructive pulmonary disease exacerbation, elevated BNP, hypertension. DISCHARGE DIAGNOSES: 1. Chronic obstructive pulmonary disease, improved. 2. Diastolic dysfunction. 3. Hypertension. CONSULTATIONS: Dr. Martínez for Pulmonary. PROCEDURES: IV steroid therapy, BiPAP. HOSPITAL COURSE: This is a 73-year-old female, patient of Dr. Godwin, with a history of COPD, presented to emergency department with worsening shortness of breath over the past 2-3 weeks. As she presented to the emergency department, she originally had a temperature of 101. She had some improvement with Solu-Medrol, magnesium, and DuoNeb, but did require BiPAP on the first day of admission. She was eventually able to be weaned off the BiPAP. Dr. Martínez saw the patient in evaluation, agreed with the plan. Continued her steroid therapy, neb treatments, and supportive care. She continued to improve. Dr. Martínez saw the patient in followup when she was able to be moved out of the ICU, was also discussed with the family about where she should be living and the daughter was going to be planning on taking her home for a better living environment to decrease her exacerbations of her COPD. She rapidly improved back to her baseline. She was able to be weaned down to oral steroids and Dr. Martínez recommended a short taper as well as neb treatments at home and continuous oxygen therapy. DISCHARGE PHYSICAL EXAMINATION: VITAL SIGNS: Temperature 98.0, pulse is 76, respirations 18, pulse ox 98% to 100% on 3 L nasal cannula, blood pressure 140/65. GENERAL: She is awake and alert. No acute distress. She is resting comfortably. Mucosa is moist. NECK: Supple. No bruit. HEART: Regular rate and rhythm. LUNGS: Distant, but no wheeze, rales, or rhonchi. ABDOMEN: Soft. EXTREMITIES: No edema. DISCHARGE LABORATORY DATA: White blood cell count 18,000, likely steroid therapy effect. Hemoglobin and hematocrit 13.4 and 41.6, platelets of 250. Sodium 133, potassium 4.7, chloride 92, CO2 of 32, BUN and creatinine 32 and 0.81, serum glucose of 121. Echocardiogram revealed mild concentric left ventricular hypertrophy, ejection fraction of 50% to 55%, changes suggestive of diastolic dysfunction. DISCHARGE MEDICATIONS: 1. Tylenol p.r.n. 2. DuoNeb q.6. 3. Xanax p.r.n. anxiety. 4. Amlodipine 5 mg daily. 5. Doxycycline 100 mg b.i.d. 6. Lasix 40 mg daily. 7. Losartan 50 mg daily. 8. Metoprolol 50 mg daily. 9. Dulera two puffs b.i.d. 10. Prednisone taper. FOLLOWUP INSTRUCTIONS: The patient is to follow up with Dr. Godwin next week. Job ID: [id number]
== END 2019-03-08 15:07 | disposition home or self-care (01) | DRG 190 ==
LOC: ERS 00:17 → CCU 02:20 → 2NO 03-06 18:35
PROVIDERS: ADMIT Family Medicine; ATTEND Family Medicine
DX: J44.1 Chronic obstructive pulmonary disease with (acute) exacerbation (principal); J96.21 Acute and chronic respiratory failure with hypoxia; I50.32 Chronic diastolic (congestive) heart failure; I11.0 Hypertensive heart disease with heart failure; F41.9 Anxiety disorder, unspecified; I35.2 Nonrheumatic aortic (valve) stenosis with insufficiency; Z87.891 Personal history of nicotine dependence; Z30.2 Encounter for sterilization; Z99.81 Dependence on supplemental oxygen; Z79.82 Long term (current) use of aspirin; Z79.899 Other long term (current) drug therapy
CPT/HCPCS: 36415; 71045; 80048; 80053; 80306; 81003; 81015; 82553; 82805; 83605; 83880; 84484; 85025; 87040; 93005; 93306; 94640; 94660; J1650; J1956; J2543; J2920; J3370; J3490; J7512; J7620

== ENCOUNTER 2019-03-09 16:45 | Emergency (ER) | payer MEDICARE ==
--- NOTE | 2019-03-09 17:16 | RAD ---
EXAM: Chest one view: HISTORY: Difficulty breathing, dyspnea COMPARISON: 02/27/2019 FINDINGS: Stable bilateral hyperinflation with flattening of the hemidiaphragms and blunting of the costophreni c angles. Heart size: Within normal limits. Lungs: Clear of acute process. No evidence for pneumonia, pleural effusion, acute edema, or pneumothorax, or other significant acute process. IMPRESSION: No significant acute intrathoracic disease. Stable exam. Atherosclerosis of the aorta.
[2019-03-09 17:35] LABS: #Lymphocytes 0.8 thou/uL (1.20-3.40); #Monocytes 0.6 thou/uL (0.11-0.59); #Neutrophils 14.4 thou/uL (1.40-6.50); %Eosinophils 0.1 % (0.0-10.0); %Lymphocytes 4.9 % (21.0-51.0); %Monocytes 4.1 % (0.0-10.0); Hemoglobin 15.3 g/dL (12.0-16.0); Mean Corpuscular HGB CONC 32.2 g/dL (32.0-36.0); Mean Corpuscular Hemoglobin 30.4 pg (27.0-31.0); Mean Corpuscular Volume 94.3 fL (78.0-98.0); Mean Platelet Volume 8.9 fL (7.4-10.4); Platelet Count 275 thou/uL (130-400); RBC Distribution Width 11.9 % (11.5-14.5); Red Blood Cell (RBC) Count 5.04 mill/uL (4.20-5.40); White Blood Cell (WBC) Count 15.8 thou/uL (4.8-10.8)
[2019-03-09 17:55] LABS: ALT (SGPT) 32 U/L (8-55); AST (SGOT) 20 U/L (5-34); Albumin 3.9 g/dL (3.4-4.8); Alkaline Phosphatase 63 U/L (40-150); Anion Gap 18 mmol/L (10-20); BUN (Urea Nitrogen) 31 mg/dL (9.8-20.1); Bilirubin, Total 0.5 mg/dL (0.2-1.2); CK (CPK) 20 U/L (29-168); Calc. Creatinine Clearance 0 mL/min (70-130); Calcium 9.7 mg/dL (7.8-10.44); Carbon Dioxide 33 mmol/L (23-31); Chloride 90 mmol/L (98-107); Estimated GFR-MDRD Greater than 90; Globulin 2.8 g/dL (2.4-3.5); Glucose 144 mg/dL (83-110); Potassium 4.5 mmol/L (3.5-5.1); Protein, Total 6.7 g/dL (6.0-8.3); Sodium 136 mmol/L (136-145)
== END 2019-03-09 18:57 | disposition home or self-care (01) ==
LOC: ERS 16:45
DX: J44.1 Chronic obstructive pulmonary disease with (acute) exacerbation (principal); F41.9 Anxiety disorder, unspecified; Z87.891 Personal history of nicotine dependence
CPT/HCPCS: 36415; 71045; 80053; 82550; 83880; 84484; 85025; 93005; 94760

== ENCOUNTER 2019-03-19 03:44 | Inpatient (IN) | payer MEDICARE ==
[2019-03-19] MEDS ORDERED: Succinylcholine Chloride 20 MG/ML 10 ml SYRINGE FS ONE (04:12)
[2019-03-19] MEDS ORDERED: Rocuronium Bromide 10 MG/ML (10ML VIAL) ONE (04:13)
[2019-03-19 04:18] LABS: #Basophils 0.1 thou/uL (0.0-0.2); #Eosinphils 0.2 thou/uL (0.0-0.7); #Lymphocytes 3.5 thou/uL (1.20-3.40); #Monocytes 1.5 thou/uL (0.11-0.59); #Neutrophils 10.2 thou/uL (1.40-6.50); %Basophils 0.6 % (0.0-1.0); %Eosinophils 1.2 % (0.0-10.0); %Lymphocytes 22.8 % (21.0-51.0); %Monocytes 9.6 % (0.0-10.0); %Neutrophils 65.8 % (42.0-75.0); Hemoglobin 15.3 g/dL (12.0-16.0); Mean Corpuscular HGB CONC 30.8 g/dL (32.0-36.0); Mean Corpuscular Hemoglobin 29.3 pg (27.0-31.0); Mean Corpuscular Volume 95.2 fL (78.0-98.0); Mean Platelet Volume 8.9 fL (7.4-10.4); Platelet Count 307 thou/uL (130-400); RBC Distribution Width 11.9 % (11.5-14.5); Red Blood Cell (RBC) Count 5.23 mill/uL (4.20-5.40); White Blood Cell (WBC) Count 15.5 thou/uL (4.8-10.8)
[2019-03-19] MEDS ORDERED: Lorazepam 2 MG/ML VIAL ONE (04:20)
[2019-03-19 04:22] LABS: pH, Arterial 7.29 (7.35-7.45)
[2019-03-19 04:23] LABS: Actual Bicarbonate (HCO3a) 33.3 mEq/L (22-28); Base Excess (BEa) 3.9 mEq/L (-2.0 to +3.0); CO2 Tension 71.5 mmHg (35.0-45.0); Carboxyhemoglobin (COHb) 0.3 gm% (0.0-3.0); Hemoglobin (Hb) 15.9 g/dL (12.0-16.0)
[2019-03-19 04:24] LABS: ALV-art Gradient 139.625 (0-20); Analyzer IN Cardio ER; Calcium, Ionized 1.23 mmol/L (1.12-1.30); Potassium - ABG Lab 3.65 mmol/L (3.70-5.30); Puncture Site RRA
[2019-03-19 04:40] LABS: ALT (SGPT) 124 U/L (8-55); AST (SGOT) 68 U/L (5-34); Albumin 3.9 g/dL (3.4-4.8); Alkaline Phosphatase 106 U/L (40-150); Anion Gap 18 mmol/L (10-20); BUN (Urea Nitrogen) 14 mg/dL (9.8-20.1); Bilirubin, Total 0.7 mg/dL (0.2-1.2); Calc. Creatinine Clearance 0 mL/min (70-130); Calcium 9.3 mg/dL (7.8-10.44); Carbon Dioxide 28 mmol/L (23-31); Chloride 97 mmol/L (98-107); Estimated GFR-MDRD 86; Glucose 213 mg/dL (83-110); Protein, Total 6.9 g/dL (6.0-8.3); Sodium 139 mmol/L (136-145)
[2019-03-19 05:12] LABS: CKMB 2.9 ng/mL (0-6.6)
[2019-03-19] MEDS ORDERED: Piperacillin/Tazobactam 3.375 GM VIAL ONE (05:25)
[2019-03-19] MEDS ORDERED: Acetaminophen 500 MG TAB ONE (05:25)
[2019-03-19] MEDS ORDERED: Ondansetron ODT 4 MG TAB SL PRN ×2 (06:47→07:45)
[2019-03-19] MEDS ORDERED: Acetaminophen 325 MG TAB PO PRN (06:47)
[2019-03-19] MEDS ORDERED: Ondansetron PF 4 MG/2 ML Vial IVP PRN ×2 (06:47→07:45)
[2019-03-19] MEDS ORDERED: Lorazepam 2 MG/ML VIAL SLOW IVP PRN (06:48)
[2019-03-19 07:16] VITALS: BMI 15.8
[2019-03-19] MEDS ORDERED: Diabetic Tussin 200 MG/10 ML UDCUP PO PRN (07:45)
[2019-03-19] MEDS ORDERED: Benzonatate 100 MG CAP PO PRN (07:45)
[2019-03-19] MEDS ORDERED: Bisacodyl 5 MG TAB PO PRN (07:45)
[2019-03-19] MEDS ORDERED: Cepastat Lozenges 1 LOZ PO PRN (07:45)
[2019-03-19] MEDS ORDERED: hydrALAZINE 20 MG/ML VIAL SLOW IVP PRN (07:45)
[2019-03-19] MEDS ORDERED: Acetaminophen 500 MG TAB PO PRN (07:45)
[2019-03-19] MEDS ORDERED: Nitroglycerin 0.4 MG TAB (25 Tab Bottle) SL PRN (07:45)
[2019-03-19] MEDS ORDERED: Albuterol Sulfate 2.5 mg/3 ml Neb NEB PRN (07:50)
[2019-03-19] MEDS ORDERED: ALPRAZolam 0.25 MG TAB PO PRN (07:52)
--- NOTE | 2019-03-19 07:53 | RAD ---
Chest one view HISTORY: Dyspnea. COMPARISON: 03/09/2019. FINDINGS: Cardiac silhouette is magnified by projection. Pulmonary vasculature is unremarkable. Lungs remain hyperinflated with flattening of each hemidiaphragm. Mediastinum is midline with aortic calcification. Calcified granulomata are consistent with healed granulomatous disease. No lobar conso lidation or evidence of pneumothorax. IMPRESSION: Emphysema. Atherosclerosis. Stable radiographic appearance of the chest
--- NOTE | 2019-03-19 08:37 | CON ---
DATE OF CONSULTATION: HISTORY OF PRESENT ILLNESS: Mary Doyle is a 73-year-old female just recently discharged from the hospital, who sees Dr. Martínez in our office, presented with not feeling well according to family member sitting beside the patient this morning in MICU. She apparently called because she was short of breath. Sats were in 80s on room air. She was put on CPAP and oxygen saturations improved. Apparently, she was given epinephrine, Solu-Medrol, magnesium, neb treatment. Extensive history is well outlined. End-stage COPD. She can barely walk even 50 feet without getting markedly short of breath. PAST MEDICAL HISTORY: Pertinent for COPD, substance abuse, tobacco abuse. Apparently, recently quit smoking. PREVIOUS SURGERIES: Tubal ligation. HOME MEDICATIONS: Nebulizer, low-flow O2, prednisone, Dulera, Cozaar 50, Lasix 20, Tylenol, Norvasc 5. ALLERGIES: NONE. SOCIAL HISTORY: Tobacco as noted. Alcohol as noted. Drug substance as noted. REVIEW OF SYSTEMS: 10-point negative. PHYSICAL EXAMINATION: VITAL SIGNS: O2 saturation is 100% on 2 L, temperature pulse 80, blood pressure 164/54. CHEST: Decreased breath sounds. No wheezing. CARDIAC: Normal S1, S2. No gallops. ABDOMEN: No masses. LABORATORY DATA: PO2 484, pCO2 71, pH 7.21 on apparently 100% FiO2 on BiPAP. Lytes are normal. Chest x-ray shows hyperinflation. No acute infiltrates. IMPRESSION: Chronic obstructive pulmonary disease exacerbation, end-stage; major anxiety; hypertension. PLAN: At this stage, continue steroids, neb treatments, supportive care. Agree with hospice evaluation. We will notify Dr. Martínez. Consultation note, 70 minutes, 50% direct patient care. Job ID: [id number]
[2019-03-19] MEDS: Sodium Chloride 0.9% 1,000 ML IV SCH (09:00)
[2019-03-19] MEDS: Losartan 25 MG TAB PO SCH (09:01)
[2019-03-19] MEDS: Aspirin 81 mg Enteric Coated Tablet PO SCH (09:01)
[2019-03-19 09:17] LABS: Lactic Acid 2.1 mmol/L (0.5-2.2)
--- NOTE | 2019-03-19 11:28 | PDOC.PALCO ---
Palliative Care Consult - Consult Details Requesting Physician: Dr Godwin Reason for Consult: goals of care, symptom management Family Members Present: Patient son - Pertinent HPI Patient with progressive pulmonary disease, several hospital admissions in the past 6 weeks secondary to pulmonary exacerbations at home where patient calls 911 and is transported to ER. Most recently patient experienced respiratory distress at home, called 911 and EMS assessed and transported patient to [facility]. Patient was evaluated by ER and admitted to [facility]. Consult to palliative care by Dr Godwin received. - Pertinent PMH COPD, CHF - Social History Smoking Status: Former smoker Smoking: quit greater than 1 year Alcohol Use: occasional Drug Use History: marijuana Living Situation: dependent child - Medications MAR Reviewed: Yes - Allergies Allergies/Adverse Reactions: Allergies Allergy/AdvReac Type Severity Reaction Status Date / Time No Known Drug Allergies Allergy Verified 02/15/19 21:06 - Subjective Cachetic, anxious. Son at bedside. Alert, oriented. O2 dependent. Patient expressed difficulty breathing at home and that her medications are "just not working any longer". - Objective Vital Signs: Vital Signs - Most Recent Temp Pulse Resp BP Pulse Ox 98.6 F 100 03/19/19 10:23 03/19/19 07:26 Palliative Performance Scale: 40 - Physical Exam Constitutional: NAD, mild distress Deviation from normal: Distress is emotional, secondary to concern over care for dependent son HEENT: PERRLA, moist MMs Deviation from normal: Diminished to lower lobes. Cardiovascular: RRR Gastrointestinal: soft, non-tender Musculoskeletal: pulses present Deviation from normal: anxiety related - Problem List (1) Palliative care encounter Code(s): Z51.5 - ENCOUNTER FOR PALLIATIVE CARE Current Visit: Yes Status: Acute Assessment: Management of symptoms of chronic disease to promote patient staying in home environment which she expressed is a priority. - Plan/Recommendations Plan:Shania Sarah RNcare team coordinator scheduler cassidy myself visited with patient at length. The following was identified as a priority as well as Plan of care: *Patient deisres to stay in home environment/is tired of frequent hospital stays. *Patient expressed concern in relation to care of her disabled son who she is the primary caregiver for *Patient expressed she wishes to sign a DNAR/OOHDNAR AFTER her son has equipment operator intermodal yard care arranged *Desires to go on hospice to manage symptoms related to terminal condition Dr Godwin notified of patient wishes and in agreement. Choice letter for [employer] signed, JOSE FRANCISCO Estrada notified. [employer] notified. I will sign off but our Palliative Care Nurse Lacie Sarah will continue to follow and I will assist in the future if notified. [75] minutes spent on this encounter with >50% of the time in counseling and coordination of care. Thank you for this very appropriate consult.
[2019-03-19 12:35] LABS: Troponin I 0.049 ng/mL (< 0.028)
[2019-03-19] MEDS: methylPREDNISolone Sod Succ 40 MG VIAL IVP SCH ×2 (14:00→21:19)
[2019-03-19] MEDS ORDERED: Morphine 10 MG/ML VIAL SLOW IVP PRN (14:35)
[2019-03-19 17:40] LABS: Troponin I 0.037 ng/mL (< 0.028)
--- NOTE | 2019-03-19 18:06 | HP ---
PRIMARY CARE PHYSICIAN: Myself, Dr. Jerry Godwin. CHIEF COMPLAINT: Shortness of breath. HISTORY OF PRESENT ILLNESS: The patient has been admitted now twice, first time a month ago on February 15 followed by actually short-stay admission on March 05 making this the third time admission. The patient has had an emergency department visit on 02/28 and 03/09 intervally in between. She was placed on steroid taper from prior discharge, last day steroid taper was yesterday. The patient was evaluated in clinic this past Sunday with saturations that were acceptable low 90s on 3 L nasal cannula. The patient had no signs of pneumonia at that point in time, however, reported difficulty getting rescue inhaler filled with going to wrong pharmacy, has difficult family structure. The patient had also the effective caregiver I believe her son, who has traumatic brain injury. Her big hesitation in getting care for herself and staying in hospital, our excepting placement is taking care of him. The patient has been on oxygen for months to years now for COPD. She has had variable episodes of noncompliance, not secondary to lack of desire, but lack of getting to the pharmacy and getting proper refills for triple therapy for COPD on outpatient basis. The patient is followed by Pulmonology. Her COPD is caused by a long-time history of smoking. The patient does have a history of mild diastolic heart failure, however, this is not her predominant problem historically. The patient does not report any increase in sputum production, but increase in shortness of breath. ABG in the emergency department was found to be acidotic with hypercapnia. The patient responded to noninvasive BiPAP treatment and placed in the intermediate ICU step-down, following discussing with nursing and having Palliative Medicine come by, the patient is amicable to hospice going home regarding the patient's end-stage lung function. Currently, current wishes still that her son gets adequate follow through care before she signs DNR/DNI. Review of past medical, social, surgical history, no known drug allergies, COPD, underweight, weight has been stable since 2018 in September, hypertension, chronic oxygen dependency, and diastolic congestive heart failure. HOME MEDICATIONS: Include: 1. Amlodipine 5 mg. 2. Guaifenesin 400 mg p.r.n. cough, sputum production. 3. Aspirin 81 mg. 4. Losartan 25 mg. 5. Metoprolol 50 mg extended release once daily. 6. Furosemide one half tablet total of 20 mg daily. 7. Magnesium tablet 240 mg daily. As stated, last day 10 mg of prednisone taper was yesterday one tablet. 8. Albuterol nebulized treatments 2.5 mL q.4 hours p.r.n. cough, wheeze. 9. Spiriva 18 mcg once daily. 10. Advair 500/50 mcg twice daily. 11. Ventolin 90 mcg base two puffs q.6 hours p.r.n., cough and wheeze. PRIOR SURGICAL HISTORY: Includes bilateral tubal ligation. Lives with disabled son as above. Review of vital signs; temperature of 98.6, heart rate of 81, respiratory rate of 23 on 100% oxygen saturation on nasal cannula currently, transition well off BiPAP. LABORATORY DATA: Sodium 139, potassium of 4.0, creatinine of 0.7, glucose of 213. AST of 60, ALT of 124. Troponins 0.06 of #1, and #2 of 0.04. Albumin of 3.9. Lactic acid improved from 2.8 to 2.1 with IV fluids. Microbiology pending. Chest x-ray, emphysematous appearance. Calcifications with well-healed granulomas consistent with prior chest x-ray. No acute infiltrate seen. PHYSICAL EXAMINATION: GENERAL: The patient is sleeping following transition the nasal cannula off the BiPAP this morning. She is arousable, verbalizes understanding regarding steroids, antibiotics and breathing treatments. Son is at bedside. HEENT: Head is normocephalic and atraumatic. Temporal wasting is noted. Oral mucosa is moist. NECK: Supple. HEART: Regular rate and rhythm at time of exam. No murmurs auscultated. Improved breath sounds from the patient's baseline following acute breathing treatment. No formal wheezes or rhonchi rales on exam this morning. ABDOMEN: Soft and nontender. Positive bowel sounds throughout. EXTREMITIES: Lower extremities without cyanosis or edema. The patient is oriented x3. No focal deficits. Speech is normal. ASSESSMENT AND PLAN: Chronic obstructive pulmonary disease exacerbation, acute on chronic respiratory failure, end-stage lung disease on chronic oxygen therapy, elevated troponin, transaminitis, underweight, continuing breathing treatment, antibiotics, Levaquin currently and Solu-Medrol. Follow up on any additional recommendations from Pulmonology. Continue the patient's home medications otherwise. Pulmonary Medicine was consulted and the patient is desiring toward moving toward hospice, which I think this is wholly appropriate given the patient's inability to rebound from this last 6 weeks of efforts to improve the patient's baseline function including long steroid taper, which she has failed to successfully come off even a day. We will likely look at discharge home with home hospice. We will order morphine for any oxygen hunger at this point in time. The patient has p.r.n. Xanax and Ativan if needed for agitation. Job ID: [id number]
[2019-03-19] MEDS ORDERED: Mometasone/Formoterol 120 PUFF INHALER INH SCH (18:30)
[2019-03-19] MEDS: Mometasone/Formoterol 120 PUFF INHALER INH SCH (18:45)
[2019-03-19] MEDS ORDERED: Amlodipine 5 MG TAB PO SCH (21:00)
[2019-03-19 21:20] VITALS: BP 178/76
[2019-03-20] MEDS: Sodium Chloride 0.9% 1,000 ML IV SCH (04:47)
[2019-03-20] MEDS: methylPREDNISolone Sod Succ 40 MG VIAL IVP SCH (04:49)
[2019-03-20] MEDS: Mometasone/Formoterol 120 PUFF INHALER INH SCH (07:37)
[2019-03-20] MEDS: Losartan 25 MG TAB PO SCH (09:37)
[2019-03-20] MEDS: Aspirin 81 mg Enteric Coated Tablet PO SCH (09:38)
[2019-03-20 10:34] VITALS: TEMP 98.8
--- NOTE | 2019-03-21 10:27 | DIS ---
DATE OF ADMISSION: 03/19/2019 DATE OF DISCHARGE: 03/20/2019 CHIEF COMPLAINT: Shortness of breath. HISTORY OF PRESENT ILLNESS/HOSPITAL COURSE: This is the patient's third admission in last 5 weeks, also has had 2 additional, I believe, emergency department visits and was discharged home on steroid taper. The patient has end-stage emphysema on chronic home oxygen, is very thin, however, has maintained her weight over the last 2 years. The patient had a low-grade temperatures, which I believe to be consistent with atelectasis rather than pneumonia. The patient's chest x-ray is completely clear and has been so on her multiple emergency department visits. The patient has struggled with getting her medications which we have been helping on outpatient basis in one time of which the patient just simply went to the wrong pharmacy. Given that the patient continues to have worsening dyspnea on triple therapy on outpatient basis with rescue inhaler and DuoNebs provided to feel it is time to move the patient to hospice. The patient was amicable. The major reason for why she was not DNR/DNI or hospice prior is because she wants to take care of her son who has suffered a traumatic brain injury. She is the primary caregiver for him regarding mental capacity issues and always pushed her in her wheelchair with her portable oxygen. The patient has maintained smoking status throughout, long-term prognosis is extremely poor. I feel the patient will be much better served rather than bouncing back to hospital every other week with home hospice with comfort measures. The patient agreed and went home on home health hospice yesterday. We will reinitiate steroid burst, provided the patient with Xanax for any anxiety regarding oxygen hunger. We will leave any narcotics for oxygen hunger to hospice team. DIAGNOSES: Include chronic obstructive pulmonary disease exacerbation, acute on chronic respiratory failure, end-stage lung disease on oxygen, elevated troponin, transaminitis, underweight. DISCHARGE DISPOSITION: Discharged home on Home Health Hospice. DISCHARGE CONDITION: Fair. DISCHARGE DIET: Regular. DISCHARGE ACTIVITY: As tolerated on oxygen at all times. FOLLOW UP: If the patient has any new concerns, may follow up with me in clinic. We can also look at local care team, but plan for the majority of the patient's care going forward to be administered through home health hospice. DISCHARGE MEDICATIONS: Including; 1. 81 mg aspirin. 2. Mucinex 600 mg. 3. Alprazolam 0.5 mg p.r.n. q.6 hours for anxiety. 4. Amlodipine 5 mg. 5. Albuterol sulfate/ipratropium 3 mL q.4 hours p.r.n. for cough, wheeze. 6. Losartan 25 mg 2 tablets once daily. 7. Metoprolol 50 mg succinate once daily. 8. Dulera inpatient, however, typically takes Advair outpatient one inhalation daily. 9. Start the patient on 40 mg of prednisone taper q.3 days down. Job ID: [id number]
--- NOTE | 2019-03-22 12:14 | EKG ---
Test Reason : Blood Pressure : / mmHG Vent. Rate : 138 BPM Atrial Rate : 138 BPM P-R Int : 120 ms QRS Dur : 080 ms QT Int : 304 ms P-R-T Axes : 083 -64 096 degrees QTc Int : 460 ms Sinus tachycardia Right atrial enlargement Pulmonary disease pattern Left anterior fascicular block Confirmed by LORIN DIMAS ([id number]), rewrite editor YONATHAN ROSE ([id number]) on 03/22/2019 12:14:27 PM Referred By: Confirmed By:LORIN DIMAS
== END 2019-03-20 13:00 | disposition hospice, home (50) | DRG 189 ==
LOC: ERS 03:44 → IMCU/EMU 05:10
PROVIDERS: ADMIT Family Medicine; ATTEND Family Medicine
DX: J96.22 Acute and chronic respiratory failure with hypercapnia (principal); J44.1 Chronic obstructive pulmonary disease with (acute) exacerbation; I50.32 Chronic diastolic (congestive) heart failure; Z66 Do not resuscitate; Z51.5 Encounter for palliative care; R79.89 Other specified abnormal findings of blood chemistry; I11.0 Hypertensive heart disease with heart failure; F41.9 Anxiety disorder, unspecified; F12.10 Cannabis abuse, uncomplicated; Z98.51 Tubal ligation status; Z87.891 Personal history of nicotine dependence; Z99.81 Dependence on supplemental oxygen
CPT/HCPCS: 36415; 71045; 80053; 81001; 82553; 82805; 83605; 84484; 85025; 87040; 87480; 87510; 87660; 93005; 94640; 94660; 96365; 96367; 96375; J1956; J2060; J2543; J2920; J3370; J7620